=== PATIENT | male | born 1945 | race Caucasian/White ===

== ENCOUNTER 2023-07-08 16:31 | Emergency (ER) | payer MEDICARE ==
[2023-07-08] MEDS ORDERED: Lidocaine 1% w/Epinephrine 1:100K 20 ML VIAL ONE (17:14)
[2023-07-08] MEDS ORDERED: Bacitracin 1 PK ONE (17:42)
[2023-07-08] MEDS ORDERED: Clindamycin 150 MG CAP ONE (17:44)
== END 2023-07-08 17:51 | disposition home or self-care (01) ==
LOC: MADERS 16:31
DX: S81.811A Laceration without foreign body, right lower leg, initial encounter (principal); I10 Essential (primary) hypertension; E78.5 Hyperlipidemia, unspecified; G62.9 Polyneuropathy, unspecified; J44.9 Chronic obstructive pulmonary disease, unspecified; G30.0 Alzheimer's disease with early onset; F02.80 Dementia in other diseases classified elsewhere, unspecified severity, without behavioral disturbance, psychotic disturbance, mood disturbance, and anxiety; W26.8XXA Contact with other sharp object(s), not elsewhere classified, initial encounter; Y93.E9 Activity, other interior property and clothing maintenance; Y92.008 Other place in unspecified non-institutional (private) residence as the place of occurrence of the external cause; Z87.891 Personal history of nicotine dependence; Z79.82 Long term (current) use of aspirin; Z79.84 Long term (current) use of oral hypoglycemic drugs; Z79.899 Other long term (current) drug therapy
CPT/HCPCS: 12002